=== PATIENT | female | born 1950 | race Caucasian/White ===

== ENCOUNTER 2016-12-11 13:54 | Outpatient (CLI) | payer OTHER, MEDICARE ==
--- NOTE | 2016-12-11 14:30 | DIAGNOSTIC IMAGING REPORT ---
PROCEDURE: DEXA BONE DENSITY STUDY CLINICAL INDICATION: SCREENING, HX OF RADIATION COMPARISON: None. FINDINGS: LUMBAR SPINE: Bone mineral density 0.677 g/cm2, T score -3.4 osteoporosis LEFT HIP: Bone mineral density 0.565 g/cm2, T score -2.6 osteoporosis LEFT FEMORAL NECK: Bone mineral density 0.767 g/cm2, T score -1.4 osteopenia FRACTURE RISK CALCULATION ( when applicable): 10-year fracture risk of a major osteoporotic fracture and of a hip fracture not reported because some score at or below -2.5 (T score greater or equal to -1.0 to: NORMAL) (T score from -1.1 to -2.4: OSTEOPENIA) (T score ess than or equal to -2.5: OSTEOPOROSIS) IMPRESSION: 1. Femoral neck osteopenia; hip and spine osteoporosis.
== END 2016-12-11 23:00 ==
LOC: XR SRH 13:54
DX: M85.88 Other specified disorders of bone density and structure, other site (principal); M81.8 Other osteoporosis without current pathological fracture; Z92.3 Personal history of irradiation